=== PATIENT | male | born 2005 | race Caucasian/White ===

== ENCOUNTER 2024-01-31 06:09 | Emergency (ER) | payer BC ==
[~2024-01-31] VITALS: Ht 185.4 cm; Wt 125.0 kg
[2024-01-31 06:21] VITALS: TEMP 98.8
[2024-01-31] MEDS ORDERED: AMOXICILLIN 50500 MG PO (07:27)
[2024-01-31 07:40] VITALS: BP 142/81; PULSE 99
== END 2024-01-31 07:45 | disposition home or self-care (01) ==
LOC: COL.ER 06:09
DX: J01.90 Acute sinusitis, unspecified (principal)